=== PATIENT | male | born 1990 | race Caucasian/White ===

== ENCOUNTER 2016-09-10 02:10 | Emergency (ER) | payer BC ==
[~2016-09-10] VITALS: Ht 187.9 cm; Wt 113.4 kg
[2016-09-10 03:00] LABS: BILIRUBIN NEGATIVE (NEGATIVE); BLOOD NEGATIVE (NEGATIVE); CLARITY CLEAR (CLEAR); COLOR YELLOW (YELLOW); GLUCOSE NEGATIVE (NEGATIVE); KETONE NEGATIVE (NEGATIVE); LEUKO ESTERASE NEGATIVE (NEGATIVE); NITRITE NEGATIVE (NEGATIVE); PH 6.5 (5.0-9.0); PROTEIN NEGATIVE (NEGATIVE); UROBILINOGEN 0.2 E.U./dl (0.2-1.0)
[2016-09-10] MEDS ORDERED: CIPRO500 MG PO (03:03)
[2016-09-10] MEDS ORDERED: ZITHROMAX250 MG PO (03:03)
[2016-09-10 03:06] LABS: BACTERIA TRACE; EPITHELIAL CELLS 0-2; URINE REFLEX COMMENT NO (NO); WBC 0-2 wbc/hpf (0-5)
== END 2016-09-10 03:18 | disposition home or self-care (01) ==
LOC: ED 02:10
PROVIDERS: Emergency Medicine Emergency Medical Services
DX: N34.2 Other urethritis (principal)